=== PATIENT | male | born 1995 | race Hispanic/Latino ===

== ENCOUNTER 2021-01-01 21:14 | Emergency (ER) | payer OTHER ==
--- NOTE | 2021-01-01 23:15 | Emergency Department Report ---
ED General Adult HPI - General Chief complaint: Psych Stated complaint: SUICIDAL IDEATION PUI?: No Time Seen by Provider: 01/01/21 23:12 Source: patient, EMS, RN notes reviewed Mode of arrival: Wheelchair Limitations: Other (Psychosis, patient not forthcoming) - History of Present Illness Initial comments: The patient was evaluated in the emergency department for symptoms described in the history of present illness. He/she was evaluated in the context of the global COVID-19 pandemic, which necessitated consideration that the patient might be at risk for infection with the virus that causes COVID-19. Institutional protocols and algorithms that pertain to the evaluation of patients at risk for COVID-19 are in a state of rapid change based on information released by regulatory bodies including the CDC and federal and [facility] organizations. These policies and algorithms were followed during the patient's care in the emergency department. Please note that these policies, procedures and recommendations changed on a rapid basis. The patient is a 25-year-old gentleman. He is brought to the hospital by emergency medical services as a suicide attempt. As per EMS documentation, patient complained of suicide attempt with rat/mouse poison, witnessed by caregiver on scene. The patient himself denied taking any poisoning or having suicidal thoughts. Apparently, complaint started 15 minutes prior to calling 911. It appears that the unit was notified at 20: 23: 39, 01/01/2021 EMS indicated unremarkable vital signs in the field. The patient is not currently accompanied by friends or family at this time for collateral information. The patient himself would not answer my questions. He insisted that he did not drink any boric acid. He states that his caregiver, at a retirement, is "making it up." He will not tell me his caregivers name, or give me their phone number. The patient could not explain to me why his caregiver would fabricate a story about him ingesting boric acid. The patient then stated to me that he would not talk to me. -: This evening Quality: other (Patient does not describe qualitative nature of symptoms.) Consistency: other (No consistency described) Improves with: other (Does not describe exacerbating or relieving factors) - Related Data Allergies Allergy/AdvReac Type Severity Reaction Status Date / Time Penicillins Allergy Hives Verified 01/01/21 21:49 ED Review of Systems ROS: Stated complaint: SUICIDAL IDEATION Other details as noted in HPI Comment: Unobtainable due to pts medical conditions (Patient will not answer most questions) Constitutional: denies: fever Psychiatric: suicidal thoughts (EMS documents suicidality) ED Past Medical Hx - Past Medical History Previous Medical History?: Yes Hx Psychiatric Treatment: Yes (SI,HI, Bipolar, Schizophrenia) - Surgical History Past Surgical History?: No ED Physical Exam - General Limitations: Other (Psychotic, disorganized, not forthcoming) General appearance: in no apparent distress, anxious - Head Head exam: Present: atraumatic, normocephalic - Eye Eye exam: Present: normal appearance, EOMI - ENT ENT exam: Present: normal exam, normal orophraynx, mucous membranes moist, normal external ear exam, other (Patient speaking in full sentences. There is no stridor.) - Neck Neck exam: Present: normal inspection, full ROM. Absent: tenderness, meningismus - Respiratory Respiratory exam: Present: normal lung sounds bilaterally. Absent: respiratory distress, wheezes, rales, rhonchi, stridor, decreased breath sounds - Cardiovascular Cardiovascular Exam: Present: normal rhythm, tachycardia, normal heart sounds. Absent: bradycardia, irregular rhythm, systolic murmur, diastolic murmur, rubs, gallop - GI/Abdominal GI/Abdominal exam: Present: soft. Absent: distended, tenderness, guarding, rebound, rigid, pulsatile mass - Rectal Rectal exam: Present: deferred - Extremities Exam Extremities exam: Present: normal inspection, full ROM, other (2+ pulses noted in the bilateral upper and lower extremities. There is no palpable cord. negative Homans sign. Muscular compartments are soft. The pelvis is stable.). Absent: pedal edema, calf tenderness - Back Exam Back exam: Present: normal inspection. Absent: tenderness, CVA tenderness (R), CVA tenderness (L), paraspinal tenderness, vertebral tenderness - Neurological Exam Neurological exam: Present: alert, other (There is no facial droop. The tongue is midline. The extraoculars are intact bilaterally. There is 5 out of 5 strength in 4 extremities.) - Psychiatric Psychiatric exam: Present: flat affect - Skin Skin exam: Present: warm, dry, intact, normal color. Absent: rash ED Course Vital Signs 01/01/21 01/02/21 01/02/21 21:48 00:11 01:57 Temperature 98.1 F 98.8 F Pulse Rate 107 H 114 H 122 H Respiratory 18 18 16 Rate Blood Pressure 124/80 Blood Pressure 129/80 [Right] O2 Sat by Pulse 95 100 98 Oximetry 01/02/21 01/02/21 01/02/21 01:59 02:00 02:16 Temperature 98.7 F Pulse Rate 119 H 118 H 120 H Respiratory 18 17 18 Rate Blood Pressure 123/78 123/78 Blood Pressure 123/78 [Right] O2 Sat by Pulse 100 98 98 Oximetry 01/02/21 01/02/21 01/02/21 02:30 02:46 03:00 Temperature Pulse Rate 126 H 126 H 120 H Respiratory 20 21 17 Rate Blood Pressure 123/78 123/78 111/63 Blood Pressure [Right] O2 Sat by Pulse 100 99 99 Oximetry 01/02/21 01/02/21 01/02/21 03:18 03:20 03:30 Temperature Pulse Rate 98 H Respiratory 16 Rate Blood Pressure 111/63 111/63 Blood Pressure 110/68 [Right] O2 Sat by Pulse 96 100 96 Oximetry 01/02/21 01/02/21 01/02/21 03:49 04:00 04:26 Temperature Pulse Rate 102 H 138 H Respiratory 18 15 Rate Blood Pressure 165/84 155/78 Blood Pressure 122/80 [Right] O2 Sat by Pulse 27 L 100 Oximetry 01/02/21 01/02/21 01/02/21 04:30 04:46 05:00 Temperature Pulse Rate 134 H 119 H 115 H Respiratory 22 21 20 Rate Blood Pressure 112/77 108/62 Blood Pressure [Right] O2 Sat by Pulse 92 93 Oximetry 01/02/21 01/02/21 01/02/21 05:16 05:30 05:46 Temperature Pulse Rate 113 H 111 H 109 H Respiratory 19 18 18 Rate Blood Pressure 108/62 108/62 108/62 Blood Pressure [Right] O2 Sat by Pulse 91 92 96 Oximetry 01/02/21 01/02/21 01/02/21 06:00 06:16 06:30 Temperature Pulse Rate 107 H 106 H 112 H Respiratory 17 18 25 H Rate Blood Pressure 109/51 109/51 109/51 Blood Pressure [Right] O2 Sat by Pulse 98 97 Oximetry 01/02/21 01/02/21 01/02/21 06:46 07:00 07:16 Temperature Pulse Rate 99 H 104 H 110 H Respiratory 18 18 19 Rate Blood Pressure 109/51 109/51 109/51 Blood Pressure [Right] O2 Sat by Pulse Oximetry 01/02/21 01/02/21 01/02/21 07:30 07:46 08:00 Temperature Pulse Rate 109 H 111 H 110 H Respiratory 18 23 19 Rate Blood Pressure 109/51 Blood Pressure [Right] O2 Sat by Pulse Oximetry 01/02/21 01/02/21 01/02/21 08:16 08:30 08:46 Temperature Pulse Rate 124 H 113 H 120 H Respiratory 15 19 20 Rate Blood Pressure 106/73 Blood Pressure [Right] O2 Sat by Pulse 98 Oximetry 01/02/21 01/02/21 01/02/21 09:00 09:16 09:30 Temperature Pulse Rate Respiratory 20 19 19 Rate Blood Pressure 109/67 106/73 106/73 Blood Pressure [Right] O2 Sat by Pulse 95 92 92 Oximetry 01/02/21 01/02/21 01/02/21 09:46 10:00 10:16 Temperature Pulse Rate Respiratory Rate Blood Pressure 106/73 106/73 106/73 Blood Pressure [Right] O2 Sat by Pulse 99 93 94 Oximetry 01/02/21 01/02/21 01/02/21 10:40 10:50 11:06 Temperature Pulse Rate Respiratory Rate Blood Pressure 106/73 106/73 106/73 Blood Pressure [Right] O2 Sat by Pulse 84 81 L 92 Oximetry 01/02/21 01/02/21 01/02/21 11:31 11:45 12:00 Temperature Pulse Rate Respiratory Rate Blood Pressure 106/73 106/73 106/73 Blood Pressure [Right] O2 Sat by Pulse 84 Oximetry 01/02/21 01/03/21 01/03/21 20:21 02:24 08:33 Temperature 98.5 F 99.1 F 98.8 F Pulse Rate 125 H 105 H 126 H Respiratory 18 18 18 Rate Blood Pressure 103/59 Blood Pressure 115/62 101/53 [Right] O2 Sat by Pulse 97 95 96 Oximetry 01/03/21 01/03/21 01/03/21 08:34 12:04 14:30 Temperature Pulse Rate 129 H 98 H 98 H Respiratory 18 20 Rate Blood Pressure Blood Pressure 134/68 [Right] O2 Sat by Pulse 95 100 100 Oximetry 01/03/21 01/03/21 01/03/21 16:02 18:38 20:00 Temperature 99.1 F Pulse Rate 96 H 94 H 90 Respiratory 18 18 18 Rate Blood Pressure Blood Pressure 128/68 124/68 120/76 [Right] O2 Sat by Pulse 100 100 98 Oximetry 01/04/21 01/04/21 02:00 07:56 Temperature 98.5 F 97.9 F Pulse Rate 83 82 Respiratory 16 20 Rate Blood Pressure Blood Pressure 118/76 104/74 [Right] O2 Sat by Pulse 96 98 Oximetry - Reevaluation(s) Reevaluation #1: 01/01/21 23:56 Differential diagnosis, including but not limited to: Ingestion, suicidality, medical clearance for psychiatric placement Assessment and plan: 25-year-old gentleman, who was brought to the hospital by EMS after a reported suicide attempt with possible boric acid. The patient is not currently accompanied by friends or family at this time for collateral information or additional information. The patient is not forthcoming with information, and will not tell me the name of his personal development educator, address, or phone number. He is insistent that "they are making it up." Attempted to reason with patient, and discussed the need for acquisition of time sensitive diagnostics, to exclude toxic ingestion, as well as to perform a physical exa mination. The patient refused this, but does not appear to exhibit decision- making capacity, and is not able to have a rational lucid conversation with myself. We also attempted to demonstrate show of force, and escalation techniques with this patient, and he did not respond appropriately, and is still refusing evaluation. Given complaint of suicidality, overdose, patient required medication with haloperidol and Ativan initial physical restraints. We will discussed with the [facility] Control [facility], I have also called up med station four, [phone] and have requested the name and phone number of the original individual who contacted 911 to obtain collateral information. The patient is placed on a 1013 hold, psychiatric consultation will be requested. 01/02/21 00:17 Called of Mr. Michael Shields; [phone]. He currently runs the personal [facility] where the patient is residing. The patient has been in this home for about the past week, after being discharged from either [place] or [place], Mr. Shields is not certain. He reports that the patient has not been taking his prescription medication for the past 3 to 4 days; he does not know the name of what medications the patient takes. He reports that yesterday, January 01, patient was witnessed to have consumed boric acid with a "energy drinks", at approximately 5:00 to 5:30 PM. And he reports that approximately 1/2-hour a fterwards, the patient started to have nausea and vomiting. He reports that prior to this, the patient was in his usual state of health. 01/02/21 00:19 Leukocytosis is likely a stress reaction. May also be secondary to energy drink consumption. Tachycardia improving. 01/02/21 03:27 Patient resting comfortably. Still tachycardic. There may be a component of sympathomimetic ingestion. IV fluids ordered. Urinalysis pending. Protecting airway at this time. 01/02/21 04:46 While resting, heart rate 115. Walking, and while awake, heart rate increases to 139. Awaiting urinalysis. IV fluids ordered, Ativan ordered. 01/02/21 06:10 Heart rate now 106 bpm. Patient resting comfortably. When more awake, would consider suitable for placement in our psychiatric holding area. signed out to Dr Bhavya Franco to follow up on ED Medical Decision Making - Lab Data Result diagrams: 01/04/21 14:23 01/03/21 11:33 Vital Signs 01/01/21 21:48 Temperature 98.1 F Pulse Rate 107 H Respiratory 18 Rate Blood Pressure 124/80 O2 Sat by Pulse 95 Oximetry Lab Results 01/01/21 01/01/21 01/01/21 Range/Units 23:04 23:04 23:04 WBC 17.0 H (4.5-11.0) K/mm3 RBC 5.24 H (3.65-5.03) M/mm3 Hgb 16.9 H (11.8-15.2) gm/dl Hct 48.6 H (35.5-45.6) % MCV 93 (84-94) fl MCH 32 (28-32) pg MCHC 35 H (32-34) % RDW 12.8 L (13.2-15.2) % Plt Count 272 (140-440) K/mm3 Lymph % (Auto) 14.3 (13.4-35.0) % [place] % (Auto) 4.2 (0.0-7.3) % Eos % (Auto) 0.1 (0.0-4.3) % Baso % (Auto) 0.1 (0.0-1.8) % Lymph # (Auto) 2.4 (1.2-5.4) K/mm3 [place] # (Auto) 0.7 (0.0-0.8) K/mm3 Eos # (Auto) 0.0 (0.0-0.4) K/mm3 Baso # (Auto) 0.0 (0.0-0.1) K/mm3 Seg Neutrophils % 81.3 H (40.0-70.0) % Seg Neutrophils # 13.8 H (1.8-7.7) K/mm3 Sodium 143 (137-145) mmol/L Potassium 3.7 (3.6-5.0) mmol/L Chloride 103.6 (98-107) mmol/L Carbon Dioxide 27 (22-30) mmol/L Anion Gap 16 mmol/L BUN 8 L (9-20) mg/dL Creatinine 0.9 (0.8-1.3) mg/dL Estimated GFR > 60 ml/min BUN/Creatinine Ratio 9 % Glucose 116 H (75-100) mg/dL Calcium 10.3 H (8.4-10.2) mg/dL Magnesium (1.7-2.3) mg/dL Total Bilirubin 0.60 (0.1-1.2) mg/dL AST 14 (5-40) units/L ALT 20 (7-56) units/L Alkaline Phosphatase 86 (35-129) units/L Total Creatine Kinase (55-170) units/L Total Protein 7.4 (6.3-8.2) g/dL Albumin 5.3 H (3.9-5) g/dL Albumin/Globulin Ratio 2.5 % Acetaminophen 5.0 L (10.0-30.0) ug/mL Valproic Acid (50-100) ug/mL [place] (0.0-1.2) mmol/L Plasma/Serum Alcohol (0-0.07) % 01/01/21 01/01/21 01/01/21 Range/Units 23:04 23:19 23:19 WBC (4.5-11.0) K/mm3 RBC (3.65-5.03) M/mm3 Hgb (11.8-15.2) gm/dl Hct (35.5-45.6) % MCV (84-94) fl MCH (28-32) pg MCHC (32-34) % RDW (13.2-15.2) % Plt Count (140-440) K/mm3 Lymph % (Auto) (13.4-35.0) % [place] % (Auto) (0.0-7.3) % Eos % (Auto) (0.0-4.3) % Baso % (Auto) (0.0-1.8) % Lymph # (Auto) (1.2-5.4) K/mm3 [place] # (Auto) (0.0-0.8) K/mm3 Eos # (Auto) (0.0-0.4) K/mm3 Baso # (Auto) (0.0-0.1) K/mm3 Seg Neutrophils % (40.0-70.0) % Seg Neutrophils # (1.8-7.7) K/mm3 Sodium (137-145) mmol/L Potassium (3.6-5.0) mmol/L Chloride (98-107) mmol/L Carbon Dioxide (22-30) mmol/L Anion Gap mmol/L BUN (9-20) mg/dL Creatinine (0.8-1.3) mg/dL Estimated GFR ml/min BUN/Creatinine Ratio % Glucose (75-100) mg/dL Calcium (8.4-10.2) mg/dL Magnesium 1.70 (1.7-2.3) mg/dL Total Bilirubin (0.1-1.2) mg/dL AST (5-40) units/L ALT (7-56) units/L Alkaline Phosphatase (35-129) units/L Total Creatine Kinase 83 (55-170) units/L Total Protein (6.3-8.2) g/dL Albumin (3.9-5) g/dL Albumin/Globulin Ratio % Acetaminophen (10.0-30.0) ug/mL Valproic Acid < 2.8 L (50-100) ug/mL [place] 0.1 (0.0-1.2) mmol/L Plasma/Serum Alcohol < 0.01 (0-0.07) % - EKG Data -: EKG Interpreted by Ca EKG shows normal: sinus rhythm Rate: normal - EKG Data When compared to previous EKG there are: previous EKG unavailable 01/01/21 23:56 EKG interpreted at 23: 16 Sinus rhythm, 97 bpm. Borderline rightward axis deviation. Intervals within normal limits. High left ventricular voltage. Abnormal EKG. Not a STEMI. No prior for comparison. - Radiology Data Radiology results: pending, report reviewed, image reviewed X-ray the chest, negative for acute findings. Critical Care Time: Yes Critical care time in (mins) excluding proc time.: 35 Critical care attestation.: If time is entered above; I have spent that time in minutes in the direct care of this critically ill patient, excluding procedure time. ED Disposition Clinical Impression: Overdose, Medical clearance for psychiatric admission Disposition: DC/TX-65 PSY HOSP/PSY UNIT Is pt being admited?: No Does the pt Need Aspirin: No Condition: Good Referrals: PRIMARY CAREMD [Primary Care Provider] - 3-5 Days
[2021-01-01] MEDS ORDERED: HALOPERIDOL LACTATE 5 MG/1 ML INJ IM PRN (23:23)
[2021-01-01] MEDS ORDERED: diphenhydrAMINE 50 MG/ML VIAL IM ONE (23:23)
[2021-01-01] MEDS ORDERED: LORazepam 2 MG/ML VIAL IM PRN (23:23)
[2021-01-01 23:41] LABS: Basophils % (Auto) 0.1 % (0.0-1.8); Eosinophils % (Auto) 0.1 % (0.0-4.3); Hematocrit 48.6 % (35.5-45.6); Hemoglobin 16.9 gm/dl (11.8-15.2); Lymphocytes # (Auto) 2.4 K/mm3 (1.2-5.4); Lymphocytes % (Auto) 14.3 % (13.4-35.0); Mean Corpuscular HGB Conc 35 % (32-34); Mean Corpuscular Volume 93 fl (84-94); Monocytes # (Auto) 0.7 K/mm3 (0.0-0.8); Monocytes % (Auto) 4.2 % (0.0-7.3); Platelet Count 272 K/mm3 (140-440); Red Blood Count 5.24 M/mm3 (3.65-5.03); Red Cell Distribution Width 12.8 % (13.2-15.2)
[2021-01-01 23:48] LABS: Alanine Aminotransferase 20 units/L (7-56); Albumin 5.3 g/dL (3.9-5); BUN/Creatinine Ratio 9; Blood Urea Nitrogen 8 mg/dL (9-20); Calcium 10.3 mg/dL (8.4-10.2); Hemolysis Index 10
--- NOTE | 2021-01-02 00:20 | XRay Report ---
CHEST 1 VIEW INDICATION: hx of boric acid ingestion COMPARISON: FINDINGS: SUPPORT DEVICES: None. HEART / MEDIASTINUM: No significant abnormality. LUNGS / PLEURA: No significant pulmonary or pleural abnormality. No pneumothorax. ADDITIONAL FINDINGS: IMPRESSION: 1. No acute cardiopulmonary disease Signer Name: Ankit Jeffries MD Signed: 01/02/2021 12:16 AM Workstation Name: [id number]
[2021-01-02] MEDS ORDERED: LACTATED RINGERS 2,000 ML IV ONE (03:27)
[2021-01-02] MEDS ORDERED: LORazepam 2 MG/ML VIAL IV STA (03:28)
--- NOTE | 2021-01-02 10:39 | Consultation ---
History of Present Illness - Reason for Consult Consult date: 01/02/21 Reason for consult: MHE Requesting physician: ROHAN GRANDE - History of Present Psychiatric Illness Per ED Provider: The patient is a 25-year-old gentleman. He is brought to the hospital by emergency medical services as a suicide attempt. As per EMS documentation, patient complained of suicide attempt with rat/mouse poison, witnessed by caregiver on scene. The patient himself denied taking any poisoning or having suicidal thoughts. Apparently, complaint started 15 minutes prior to calling 911. It appears that the unit was notified at 20: 23: 39, 01/01/2021 EMS indicated unremarkable vital signs in the field. The patient is not currently accompanied by friends or family at this time for collateral information. The patient himself would not answer my questions. He insisted that he did not drink any boric acid. He states that his caregiver, at a detention, is "making it up." He will not tell me his caregivers name, or give me their phone number. PSYCH HPI Patient is a 25-year-old single unemployed currently disabled male who presents from home by EMS with chief complaint of suicidal ideation with attempts after drinking rat poison by EMS. Patient says he may have said the wrong thing at the wrong time as he was looking for a way to get out of the detention. Patient claims he didnt drink any rat poison but did affirm he had the bottle on his hand and was seen with it. He claims he is not suicidal but very depressed about living in a detention after his parents kicked him out and decided to be paying for his detention residence. Patient also belives he does not have any ps ychiatric disorder, as he was not given any diagnosis from his last visit to [place] per patient. PAST PSYCHIATRIC HISTORY Diagnoses: schizoaffective disorder Suicide attempts or Self-harm behavior: none reported Prior psychiatric hospitalizations: yes Substance Abuse history: none Previous psychiatric medications tried: yes Outpatient treatment: none PAST MEDICAL HISTORY: Family Psychiatric History: None reported or documented SOCIAL HISTORY Marital Status: Living Arrangements: detention Employment Status: unemployed Access to guns/weapons: none reported Education: high school History of Abuse: none reported Legal History: none reproted REVIEW OF SYSTEMS ROS cannot be reliably obtained from the patient due to his refusal to particip ate MENTAL STATUS EXAMINATION General Appearance and Behavior: Age appropriate, fair hygiene, wearing appropriate clothes, lying in bed, poor eye contact, cooperative irritable with questioning. Cooperation: Participating, Hostile and Guarded Psychomotor Behavior: unremarkable and within normal limits Mood: I don't know Affect and affective range: flat, preservative Thought Process: Illogical, Blocked, Thought Content: Hopelessness, Helplessness, Speech: Normal volume, Regular rate and rhythm, Intellectual Functioning: Average Suicidal Ideation: Denies SI Homicidal Ideation: Denies HI Impulse Control: Impaired Insight and Judgment: Limited insight and judgment Memory: Short term memory intact Attention: Divided attention impaired Orientation: Alert, oriented, Diagnoses: Schizoaffective disorder Treatment Plan MEDICATIONS: Risks, benefits and alternatives of medications discussed with the patient, questions answered and consent obtained from patient. PSYCHOTHERAPY: Supportive psychotherapy provided MEDICAL: Per primary team DELIRIUM PRECAUTIONS: Please re-orient patient frequently, keep lights on during the day, and minimize benzodiazepines and opiates as these medications could worsen patient's confusion. AIR BOX TESTER: DISPOSITION: Do Recommend acute inpatient psychiatric hospitalization at this time. Case discussed with Dr. Garcia who agrees with current disposition LEGAL STATUS: 1013 FOLLOW-UP: Will follow Thank you for the consult. Please contact with any questions and/or concerns. Medications and Allergies Allergies Allergy/AdvReac Type Severity Reaction Status Date / Time Penicillins Allergy Hives Verified 01/01/21 21:49 Active Meds: Active Medications Haloperidol Lactate (Haloperidol Lactate 5 Mg/1 Ml Inj) 5 mg IM Q6HR PRN PRN Reason: Agitation Last Admin: 01/01/21 23:55 Dose: 5 mg Documented by: Lorazepam (Lorazepam 2 Mg/Ml Vial) 2 mg IM Q4HR PRN PRN Reason: Agitation Last Admin: 01/01/21 23:55 Dose: 2 mg Documented by: Mental Status Exam - Vital signs Last Vital Signs Temp 98.7 F 01/02/21 01:59 Pulse 119 H 01/02/21 01:59 Resp 18 01/02/21 01:59 BP 123/78 01/02/21 01:59 Pulse Ox 100 01/02/21 01:59 Results Result Diagrams: 01/01/21 23:04 01/01/21 23:04 Abnormal lab results 01/01/21 01/01/21 01/01/21 Range/Units 23:04 23:04 23:04 WBC 17.0 H (4.5-11.0) K/mm3 RBC 5.24 H (3.65-5.03) M/mm3 Hgb 16.9 H (11.8-15.2) gm/dl Hct 48.6 H (35.5-45.6) % MCHC 35 H (32-34) % RDW 12.8 L (13.2-15.2) % Seg Neutrophils % 81.3 H (40.0-70.0) % Seg Neutrophils # 13.8 H (1.8-7.7) K/mm3 BUN 8 L (9-20) mg/dL Glucose 116 H (75-100) mg/dL Calcium 10.3 H (8.4-10.2) mg/dL Albumin 5.3 H (3.9-5) g/dL Salicylates (2.8-20.0) mg/dL Acetaminophen 5.0 L (10.0-30.0) ug/mL Valproic Acid (50-100) ug/mL 01/01/21 01/02/21 01/02/21 Range/Units 23:19 00:52 00:52 WBC (4.5-11.0) K/mm3 RBC (3.65-5.03) M/mm3 Hgb (11.8-15.2) gm/dl Hct (35.5-45.6) % MCHC (32-34) % RDW (13.2-15.2) % Seg Neutrophils % (40.0-70.0) % Seg Neutrophils # (1.8-7.7) K/mm3 BUN (9-20) mg/dL Glucose (75-100) mg/dL Calcium (8.4-10.2) mg/dL Albumin (3.9-5) g/dL Salicylates < 0.3 L (2.8-20.0) mg/dL Acetaminophen 5.0 L (10.0-30.0) ug/mL Valproic Acid < 2.8 L (50-100) ug/mL All other labs normal.
[2021-01-02 17:11] LABS: Bacteria,Urine 1+ /HPF (Negative); Bilirubin,Urine NEG (Negative); Blood,Urine NEG (Negative); Color,Urine Colorless (Yellow); Protein,Urine <15 mg/dL mg/dL (Negative); RBC,Urine < 1.0 /HPF (0.0-6.0); Urobilinogen,Urine < 2.0 mg/dL (<2.0); WBC,Urine < 1.0 /HPF (0.0-6.0)
[2021-01-02 17:24] LABS: Amphetamine Screen,Urine Negative; Benzodiazepines Screen,Urine Negative; Cannabinoid Screen,Urine Negative; Cocaine Screen,Urine Negative; Methadone Screen,Urine Negative; Opiate Screen,Urine Negative
[2021-01-02] MEDS ORDERED: SODIUM CHLORIDE 0.9% 1000 ML 1,000 ML IV ONE (21:11)
[2021-01-03 00:13] LABS: Hematocrit 40.2 % (35.5-45.6); Hemoglobin 14.2 gm/dl (11.8-15.2); Mean Corpuscular HGB Conc 35 % (32-34); Mean Corpuscular Volume 91 fl (84-94); Platelet Count 215 K/mm3 (140-440); Red Cell Distribution Width 12.6 % (13.2-15.2)
--- NOTE | 2021-01-03 10:13 | Electrocardiograph Report ---
[facility] Test Date: 2021-01-01 Test Time: 23:16:42 Pat Name: WAYNE URBINA Department: Room: Gender: M Underwriting Specialist: BANDAR : 1995 Requested By: JARRED LO Order Number: [id number] Reading MD: Heber Pittman Measurements Intervals [place] Rate: 97 P: 73 NV: 133 QRS: 102 QRSD: 107 T: 62 QT: 344 QTc: 438 Interpretive Statements Sinus rhythm Consider inferior infarct No previous ECG available for comparison Electronically Signed On 01-03-2021 10:12:46 EDT by Heber Pittman
[2021-01-03] MEDS ORDERED: SODIUM CHLORIDE 0.9% 1000 ML 1,000 ML IV ONE ×2 (11:12→11:14)
--- NOTE | 2021-01-03 11:20 | Event Note ---
Date: 01/03/21 25-year-old male with history of schizoaffective disorder who originally came in on 531 after he apparently tried to commit suicide by drinking rat poison (boric acid). He later said that while he was seen holding a bottle of rat poison he did not in fact ingested. He received a full medical work-up and was medically cleared for psychiatric evaluation. S: Nurse reports that the patient has been persistently tachycardic in the 120s overnight despite receiving 3 L of IV fluids throughout the day yesterday. The patient denies any complaints. He says he has felt physically fine and denies experiencing any palpitations, chest pain, shortness of breath, cough, lightheadedness, weakness, numbness, abdominal pain, nausea/vomiting, or any o ther complaints. O: Review of the patient's vital signs from yesterday reveals that at 1 point from 10 AM until approximately noon the patient's oxygen saturation was in the low 90s and at some points dipped into the 80s. However this seemed to have resolved and he did not have further episodes of hypoxia and his initial chest x-ray was negative Vital Signs - 24 hr 01/02/21 01/02/21 01/02/21 11:31 11:45 12:00 Temperature Pulse Rate Respiratory Rate Blood Pressure 106/73 106/73 106/73 Blood Pressure [Right] O2 Sat by Pulse 84 Oximetry 01/02/21 01/03/21 01/03/21 20:21 02:24 08:33 Temperature 98.5 F 99.1 F 98.8 F Pulse Rate 125 H 105 H 126 H Respiratory 18 18 18 Rate Blood Pressure 103/59 Blood Pressure 115/62 101/53 [Right] O2 Sat by Pulse 97 95 96 Oximetry 01/03/21 08:34 Temperature Pulse Rate 129 H Respiratory Rate Blood Pressure Blood Pressure [Right] O2 Sat by Pulse 95 Oximetry Laboratory Results - last 24 hr 01/01/21 01/01/21 01/02/21 Unknown Unknown Unknown WBC RBC Hgb Hct MCV MCH MCHC RDW Plt Count Urine Color Colorless Urine Turbidity Clear Urine pH 7.0 Ur Specific [place] 1.001 L Urine Protein <15 mg/dl Urine Glucose (UA) Neg Urine Ketones Neg Urine Blood Neg Urine Nitrite Neg Urine Bilirubin Neg Urine Urobilinogen < 2.0 Ur Leukocyte Esterase Neg Urine WBC (Auto) < 1.0 Urine RBC (Auto) < 1.0 Urine Bacteria (Auto) 1+ Urine Opiates Screen Negative Urine Methadone Screen Negative Ur Barbiturates Screen Negative Ur Phencyclidine Scrn Negative Ur Amphetamines Screen Negative U Benzodiazepines Scrn Negative Urine Cocaine Screen Negative U Marijuana (THC) Screen Negative Drugs of Abuse Note Disclamer Coronavirus (PCR) Negative 01/03/21 00:04 WBC 13.7 H RBC 4.40 Hgb 14.2 Hct 40.2 D MCV 91 MCH 32 MCHC 35 H RDW 12.6 L Plt Count 215 Urine Color Urine Turbidity Urine pH Ur Specific [place] Urine Protein Urine Glucose (UA) Urine Ketones Urine Blood Urine Nitrite Urine Bilirubin Urine Urobilinogen Ur Leukocyte Esterase Urine WBC (Auto) Urine RBC (Auto) Urine Bacteria (Auto) Urine Opiates Screen Urine Methadone Screen Ur Barbiturates Screen Ur Phencyclidine Scrn Ur Amphetamines Screen U Benzodiazepines Scrn Urine Cocaine Screen U Marijuana (THC) Screen Drugs of Abuse Note Coronavirus (PCR) A/P: 25-year-old male with schizoaffective disorder brought to the ED after a suppose a suicide attempt by drinking boric acid, the claim which the patient later denied. The patient is well-appearing and has no physical complaints. However, he is remained persistently tachycardic mostly in the 120s since he came in on 01/01 despite receiving fluid resuscitation including 3 L of IV fluids given yesterday.
[2021-01-03] MEDS ORDERED: cefTRIAXone/NS 1 GM/50 ML 1 GM/50 ML BAG IV ONE (11:32)
[2021-01-03 11:46] LABS: Basophils # (Auto) 0.1 K/mm3 (0.0-0.1); Basophils % (Auto) 0.6 % (0.0-1.8); Eosinophils # (Auto) 0.1 K/mm3 (0.0-0.4); Eosinophils % (Auto) 0.9 % (0.0-4.3); Hematocrit 42.7 % (35.5-45.6); Hemoglobin 15.1 gm/dl (11.8-15.2); Lymphocytes # (Auto) 2.9 K/mm3 (1.2-5.4); Lymphocytes % (Auto) 25.2 % (13.4-35.0); Mean Corpuscular HGB Conc 35 % (32-34); Mean Corpuscular Volume 91 fl (84-94); Monocytes # (Auto) 0.4 K/mm3 (0.0-0.8); Monocytes % (Auto) 3.1 % (0.0-7.3); Platelet Count 245 K/mm3 (140-440); Red Blood Count 4.69 M/mm3 (3.65-5.03); Red Cell Distribution Width 12.5 % (13.2-15.2)
[2021-01-03 12:11] LABS: Alanine Aminotransferase 29 units/L (7-56); Albumin 4.9 g/dL (3.9-5); BUN/Creatinine Ratio 9; Blood Urea Nitrogen 7 mg/dL (9-20); Calcium 9.1 mg/dL (8.4-10.2); Hemolysis Index 8
[2021-01-03 12:17] LABS: Bilirubin,Direct < 0.2 mg/dL (0-0.2)
--- NOTE | 2021-01-03 12:36 | XRay Report ---
CHEST 1 VIEW 01/03/2021 11:30 AM INDICATION / CLINICAL INFORMATION: Tachycardia. COMPARISON: 01/01/2021 FINDINGS: SUPPORT DEVICES: None. HEART / MEDIASTINUM: No significant abnormality. LUNGS / PLEURA: No significant pulmonary or pleural abnormality. No pneumothorax. ADDITIONAL FINDINGS: No significant additional findings. IMPRESSION: 1. No significant change. Signer Name: Greg Goncalves MD Signed: 01/03/2021 12:32 PM Workstation Name: [id number]
--- NOTE | 2021-01-04 11:41 | Event Note ---
Date: 01/04/21 S: "I'm A-ok." O: Vital signs stable; patient calm and cooperative A: Schizoaffective disorder P: 1013; awaiting inpatient psychiatric placement
[2021-01-04 14:39] LABS: Basophils % (Auto) 0.4 % (0.0-1.8); Eosinophils # (Auto) 0.1 K/mm3 (0.0-0.4); Eosinophils % (Auto) 0.7 % (0.0-4.3); Hematocrit 43.6 % (35.5-45.6); Hemoglobin 14.8 gm/dl (11.8-15.2); Lymphocytes % (Auto) 24.6 % (13.4-35.0); Mean Corpuscular HGB Conc 34 % (32-34); Mean Corpuscular Volume 93 fl (84-94); Monocytes # (Auto) 0.3 K/mm3 (0.0-0.8); Monocytes % (Auto) 3.8 % (0.0-7.3); Platelet Count 233 K/mm3 (140-440); Red Blood Count 4.69 M/mm3 (3.65-5.03); Red Cell Distribution Width 12.7 % (13.2-15.2)
[2021-01-05 04:22] VITALS: BP 109/68
--- NOTE | 2021-01-05 10:12 | Event Note ---
S: "I'm A-ok." O: Vital signs stable; patient calm and cooperative A: Schizoaffective disorder P: 1013; awaiting inpatient psychiatric placement
--- NOTE | 2021-01-05 11:40 | Progress Note ---
Subjective - Reason for Consult Consult date: 01/05/21 Reason for consult: SI - Chief Complaint Chief complaint: The patient was seen today, he is uncooperative and not forthcoming. He initially tells me he doesn't want to talk. When informing the patient that I needed to ask him a couple of questions, he started saying "no" to all of the questions before I even got them out good. REVIEW OF SYSTEMS Constitutional: Negative for weight loss ENT: Negative for stridor Respiratory: Negative for cough or hemoptysis All other systems reviewed and are negative MENTAL STATUS EXAMINATION General Appearance and Behavior: Age appropriate, good hygiene, wearing appropriate clothes, poor eye contact Cooperation: Participating/engaged, but Guarded Psychomotor Behavior: Psychomotor normal Mood: depressed Affect and affective range: irritable, labile Thought Process: illogical Thought Content: hopelessness, helplessness Speech: Normal rate, volume and rythm Intellectual Functioning: Average Suicidal Ideation: SI Homicidal Ideation: Denies HI Impulse Control: Impaired Insight and Judgment: Limited insight and judgment Memory: Normal Attention: Normal Orientation: Alert, oriented Assessment and Plan (1) MDD (major depressive disorder) Current Visit: Yes Status: Acute Treatment Plan Zoloft 25mg po daily Abilify 5mg po daily Risks, benefits and alternatives of medications discussed with the patient, questions answered and consent obtained from patient. PSYCHOTHERAPY: Supportive psychotherapy provided MEDICAL: Per primary team DELIRIUM PRECAUTIONS: Please re-orient patient frequently, keep lights on during the day, and minimize benzodiazepines and opiates as these medications could worsen patient's confusion. 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 Case discussed with Dr. Garcia who agrees with current disposition LEGAL STATUS: 1013 FOLLOW-UP: Will follow Thank you for the consult. Please contact with any questions and/or concerns. Mental Status Exam - Vital signs Last Vital Signs Temp 99.1 F 01/05/21 04:21 Pulse 78 01/05/21 04:21 Resp 16 01/05/21 04:21 BP 109/68 01/05/21 04:21 Pulse Ox 97 01/05/21 04:21
[2021-01-05] MEDS ORDERED: SERTRALINE 25 MG TAB PO SCH (12:00)
[2021-01-05] MEDS ORDERED: ARIPiprazole 5 MG TAB PO SCH (12:00)
== END 2021-01-05 12:00 | disposition home or self-care (01) ==
LOC: ED 21:14 → EEVIPCON 21:14 → ED 01-05 12:00
DX: T49.0X2A Poisoning by local antifungal, anti-infective and anti-inflammatory drugs, intentional self-harm, initial encounter (principal); Z20.822 Contact with and (suspected) exposure to COVID-19; Y92.89 Other specified places as the place of occurrence of the external cause; F31.9 Bipolar disorder, unspecified; F20.9 Schizophrenia, unspecified; Z88.0 Allergy status to penicillin; Z79.899 Other long term (current) drug therapy
CPT/HCPCS: 36415; 71045; 80048; 80053; 80076; 80164; 80178; 80307; 81001; 82550; 83735; 84443; 84484; 85025; 85027; 85379; 87040; 93005; 96361; 96365; 96366; 96372; 96375; 99285; J0696; J1200; J1630; J2060; J7030; J7120; U0003; 80320; G0480